=== PATIENT | male | born 1940 | race Caucasian/White ===

== ENCOUNTER 2021-11-01 18:38 | Emergency (ER) | payer OTHER ==
[~2021-11-01] VITALS: Ht 172 cm; Wt 82.0 kg
--- OUTSIDE RECORDS SUMMARY | 2021-11-01 18:43 | XMS REPORT | Clinical Summary ---
Author Author [facility] Organization [facility] Address Unknown Phone Unavailable Care Team Providers Care Molding Machine Tender Name Role Phone Aly Self DO PCP Source Comments Some departments are not documenting in the electronic medical record. If you d o not see the information that you expected, contact Release of Information in [facility] SwitchNote Information Management department at [phone] for further assistan ce in locating additional records.[facility] Allergies Comments Active Allergy Reactions Severity Noted Date Swelling of throat Iodine ANAPHYLAXIS High 10/01/2018 Morphine ITCHING Low 09/21/2018 Penicillins HIVES Medium 09/02/2018 arthralgias Gqbniqk-Cvq-Yzl Reductase SEE COMMENTS Low 08/23 Inhibitors Medications End Date Status Medication Sig Dispensed Refills Start Date Active levothyroxine (SYNTHROID) Take 1 tablet 0 07/25 112 mcg tablet by mouth 8 daily. Active lisinopril (PRINIVIL; Take 1 tablet 0 05/29/20 1 ZESTRIL) 20 mg tablet by mouth 8 daily. Active aspirin EC 81 mg tablet Take 81 mg by 0 mouth daily. Take with food. Active fexofenadine(+) (MEEK) Take 180 mg 0 180 mg tabletIndications: by mouth allergic rhinitis daily as needed. Active Magnesium 250 mg tab Take 250 mg 0 by mouth daily. Active gabapentin (NEURONTIN) Take 300 mg 0 01 300 mg capsule by mouth 8 three times daily. Active triamterene-hydrochloroth 0 iazide (DYAZIDE) 37.5-25 9 mg capsule Active simvastatin (ZOCOR) 40 mg Take 40 mg by 0 tablet mouth at bedtime daily. Active methylprednisolone Take with 4 tablet 0 02 (MEDROL) 32 mg tablet food. Take 1 1 Tablet 12 hours prior to scan and 1 tablet 2 hours prior to scan. Also take 50 mg benadryl 1 hours prior to scan. 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 Mr. Aleman is a 77 year old male wit h past medical history of HTN, hypothyroidism, HLD and tobacco with me lanoma left lateral eye lid. - Shave biopsy 09/09/18 with ulcerated melanoma with a Breslow thickness of at least 2.5 mm. The deep margin was po sitive for melanoma, there was no LVI or PNI identified. Provisional stag e T3b. - WLE and SLN biopsy 10/01/18 after binta lying CBD oil, no residual melanoma BRAF Status: Unknown CURRENT THERAPY: Observation L ast Assessment & Plan: Formatting of this note might be differ ent from the original. No evidence of recurrent disease. Resolved Problems Problem Noted Date Resolved Date Back pain 07/18/2020 Last Assessment & Plan: Formatting of this note might be differ ent from the original. Discussed L2 fracture on CT scan today. Patient reports injuring his back and having some back pain. He opted out of surgery for this. He re ports using CBD oil for this and that it has helped. Surgical History Surgery Date Site/Laterality Comments HX APPENDECTOMY 11/23/1982 - 11/22/1983 HX CHOLECYSTECTOMY 11/23/2013 - 11/22/2014 ABDOMINAL HERNIA REPAIR 11/23/2011 - 11/22/2012 WISDOM TEETH EXTRACTION 11/23/1958 - 11/22/1959 RETINAL DETACHMENT REPAIR 11/23/2004 - Left 11/22/2005 CATARACT REMOVAL 2004, 2006 Bilateral SKIN GRAFT 10/08/2018 Face/Left FULL THICKNESS SKIN GRAFT 20 SQ CM OR LESS - FACE/ NECK, LEFT LOWER LID & LEFT CHEEK perfo rmed by Xiang Pimentel MD at [facility] [address] OR/PERIOP MALIGNANT SKIN LESION 10/01/2018 Face/Left WIDE LOC AL EXCISION OF LEFT CHEEK performed by EXCISION Ranjeet Lr MD at [facility] OR/Periop LYMPH NODE BIOPSY 10/01/2018 Face/Left DEEP CERVICA L SENTINEL LYMPH NODE BIOPSY performed by Ranjeet Lr MD at [facility] OR/Pe riop Medical History Medical History Date Comments Back pain Hearing reduced Hypertension Acquired hypothyroidism Hyperlipidemia TIA (transient ischemic attack) 2000 no res idual effects Cancer (HCC) 08/2018 melanoma, left tanner k Family History Medical History Relation Name Comments Diabetes Father Cancer-Uterine Mother Relation Name Status Comments Father Mother Social History Date Tobacco Use Types Packs/Day Years Used Current Every Day Smoker Cigarettes, 2 40 Cigars Smokeless Tobacco: Never Used Tobacco Cessation: Ready to Quit: No Comments Alcohol Use Standard Drinks/Week Yes 6 (1 standard drink = 0.6 o z pure alcohol) Sex Assigned at Date Recorded Male 07/08/2021 11:42 AM CDT Last Filed Vital Signs Reading Time Taken Comments Vital Sign 131/57 07/15/2021 2:37 PM CDT Blood Pressure 76 07/15/2021 2:37 PM CDT Pulse 36.6 C (97.9 F) 07/15/2021 2:37 PM CDT Temperature 16 07/15/2021 2:37 PM CDT Respiratory Rate 100% 07/15/2021 2:37 PM CDT Oxygen Saturation - - Inhaled Oxygen Concentration 84 kg (185 lb 3.2 oz) 07/15/2021 2:37 PM CDT Weight 170.2 cm (5' 7") 07/15/2021 2:37 PM CDT Height 29.01 07/15/2021 2:37 PM CDT Body Mass Index Plan of Treatment Health Maintenance Due Date Last Done Comments MEDICARE ANNUAL WELLNESS 1942 VISIT PNEUMONIA (PPSV23) 1948 VACCINE (1 of 4 - PCV13) DTAP/TDAP VACCINES (1 - 1960 Tdap) HEPATITIS C SCREENING 1960 PHYSICAL (COMPREHENSIVE) 1960 EXAM SHINGLES RECOMBINANT 1992 VACCINE (1 of 2) INFLUENZA VACCINE 06/23/2021 Results Not on filefrom Last 3 Months Insurance Type Payer Benefit Subscriber ID Effective Phone Address Plan / Dates Group Medicare MEDICARE MEDICARE [id number] 2007-P [phone] [address] [place] [address] Medicare BCBS [place] BCBS [id number] 2020-P [phone] [address] [place] [address] Advance Directives Patient Coordinator Of Health Services Explanation Type Date Recorded Advance 09/02/2018 4:40 PM Directive/DPOA Care Teams Start Date End Date Molding Machine Tender Relationship Specialty 08/31/18 Aly Self DO PCP - General Family [address], [place] [id number]
--- OUTSIDE RECORDS SUMMARY | 2021-11-01 18:43 | XMS REPORT | Clinical Summary ---
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
--- NOTE | 2021-11-01 19:14 | ED GI ---
General Chief Complaint: Respiratory Problems Stated Complaint: FEVER/LOW OXYGEN LEVELS/DIZZINESS Source of Information: Patient Exam Limitations: No Limitations History of Present Illness Date Seen by Provider: Nov 01, 2021 Time Seen by Provider: 18:52 Initial Comments Patient to ER by private conveyance with his significant other and a report that he is been having chills, a week of shortness of air oxygen saturations 91% on room air today. He is a smoker however undiagnosed with COPD., Malaise, poor appetite for the past [address] CABALLERO's office 2 days ago and they thought maybe it was a dental abscess. He denies having any tooth pain or difficulty eating just poor appetite. They put him on ciprofloxacin and he has had 5 doses with no improvement. He also was given Magic mouthwash which did not improve his dentition as he is not having any dental symptoms prior to this. Patient not having any difficulty swallowing or nausea. No diarrhea or constipation. Had a normal bowel movement this morning. He denies fevers, worsening cough or shortness of air. He did not receive any testing at the time he was at his doctor's office. He denies having had Covid or influenza vaccination Allergies and Home Medications Allergies Coded Allergies: Penicillins (Verified Allergy, Unknown, 11/01/21) Patient Home Medication List Home Medication List Reviewed: Yes Review of Systems Review of Systems Constitutional: No chills, No diaphoresis EENTM: No Blurred Vision, No Double Vision Respiratory: Denies Cough, Denies Orthopnea Cardiovascular: Denies Chest Pain, Denies Edema Gastrointestinal: Denies Abdominal Pain, Denies Nausea Genitourinary: Denies Burning, Denies Discharge Musculoskeletal: No back pain, No joint pain Skin: No change in color, No lesions Psychiatric/Neurological: Denies Anxiety, Denies Depressed Endocrine: Denies Flushing, Denies Intolerance to Cold All Other Systems Reviewed Negative Unless Noted: Yes Past Gekbjfh-Xxktlz-Qulofe Hx Patient Social History Tobacco Use?: Yes Tobacco type used: Cigarettes Smoking Status: Current Everyday Smoker Substance use?: No Alcohol Use?: No Pt feels they are or have been: No Physical Exam Vital Signs Vital Signs - First Documented Capillary Refill : Less Than 3 Seconds Height/Weight/BMI Height: '" Weight: lbs. oz. kg; BMI Method: General Appearance: WD/WN, no apparent distress HEENT: PERRL/EOMI, normal ENT inspection, TMs normal; No pharynx normal (Significant dental caries without erythema swelling or tenderness over the indicated tooth in question.) Neck: non-tender, full range of motion, supple, normal inspection Respiratory: no respiratory distress (No increased work of breathing, 96% on room air, nonlabored breathing.), no accessory muscle use, wheezing (Faint, expiratory wheezing) Cardiovascular: normal peripheral pulses, regular rate, rhythm Peripheral Pulses: 2+ Radial Pulses (R), 2+ Radial Pulses (L) Gastrointestinal: normal bowel sounds, soft, tenderness (Mild tenderness right lower quadrant abdomen, without McBurney's point tenderness or rebound tenderness, negative for Rovsing sign. No mesenteric signs noted.) Neurologic/Psychiatric: alert; No normal mood/affect (Flat affect); oriented x 3 Skin: normal color, warm/dry Progress/Results/Core Measures Results/Orders Lab Results Laboratory Tests Test 11/01/21 19:06 Range/Units White Blood Count 5.0 4.3-11.0 10^3/uL Red Blood Count 5.26 4.30-5.52 10^6/uL Hemoglobin 16.1 13.3-17.7 g/dL Hematocrit 47 40-54 % Mean Corpuscular Volume 89 80-99 fL Mean Corpuscular Hemoglobin 31 25-34 pg Mean Corpuscular Hemoglobin Concent 34 32-36 g/dL Red Cell Distribution Width 13.0 10.0-14.5 % Platelet Count 130 130-400 10^3/uL Mean Platelet Volume 11.3 9.0-12.2 fL Immature Granulocyte % (Auto) 0 % Neutrophils (%) (Auto) 55 42-75 % Lymphocytes (%) (Auto) 30 12-44 % Monocytes (%) (Auto) 14 H 0-12 % Eosinophils (%) (Auto) 0 0-10 % Basophils (%) (Auto) 0 0-10 % Neutrophils # (Auto) 2.8 1.8-7.8 10^3/uL Lymphocytes # (Auto) 1.5 1.0-4.0 10^3/uL Monocytes # (Auto) 0.7 0.0-1.0 10^3/uL Eosinophils # (Auto) 0.0 0.0-0.3 10^3/uL Basophils # (Auto) 0.0 0.0-0.1 10^3/uL Immature Granulocyte # (Auto) 0.0 0.0-0.1 10^3/uL Percent Immature Platelet Fraction 6.5 0.0-7.6 % Sodium Level 132 L 135-145 MMOL/L Potassium Level 4.0 3.6-5.0 MMOL/L Chloride Level 102 98-107 MMOL/L Carbon Dioxide Level 16 L 21-32 MMOL/L Anion Gap 14 5-14 MMOL/L Blood Urea Nitrogen 29 H 7-18 MG/DL Creatinine 1.59 H 0.60-1.30 MG/DL Estimat Glomerular Filtration Rate 42 BUN/Creatinine Ratio 18 Glucose Level 87 70-105 MG/DL Calcium Level 8.6 8.5-10.1 MG/DL Corrected Calcium 8.8 8.5-10.1 MG/DL Total Bilirubin 0.7 0.1-1.0 MG/DL Aspartate Amino Transf (AST/SGOT) 30 5-34 U/L Alanine Aminotransferase (ALT/SGPT) 25 0-55 U/L Alkaline Phosphatase 66 40-136 U/L C-Reactive Protein High Sensitivity 4.05 H 0.00-0.50 MG/DL Total Protein 6.5 6.4-8.2 GM/DL Albumin 3.8 3.2-4.5 GM/DL Influenza Type A (RT-PCR) Not Detected Not Detecte Influenza Type B (RT-PCR) Not Detected Not Detecte SARS-CoV-2 RNA (RT-PCR) Detected H Not Detecte My Orders Orders - FRANCES CADE Covid 19 Inhouse Test (11/01/21 19:04) Influenza A And B By Pcr (11/01/21 19:04) Cbc With Automated Diff (11/01/21 19:04) Comprehensive Metabolic Panel (11/01/21 19:04) Hs C Reactive Protein (11/01/21 19:04) Chest 1 View, Ap/Pa Only (11/01/21 19:04) Ed Iv/Invasive Line Start (11/01/21 19:15) Lactated Ringers (Lr 1000 Ml Iv Solution (11/01/21 19:15) Pantoprazole Injection (Protonix Injecti (11/01/21 19:30) Ondansetron Injection (Zofran Injectio (11/01/21 19:30) Medications Given in ED Current Medications Medications Dose Ordered Sig/Shaun Route Start Time Stop Time Status Last Admin Dose Admin Lactated Ringer's 1,000 ml @ 0 mls/hr Q0M ONCE IV 11/01/21 19:15 11/01/21 19:16 DC 11/01/21 19:20 1,000 MLS/HR Ondansetron HCl 8 mg ONCE ONCE IVP 11/01/21 19:30 11/01/21 19:31 DC 11/01/21 19:24 8 MG Pantoprazole 40 mg ONCE ONCE IV 11/01/21 19:30 11/01/21 19:31 DC 11/01/21 19:25 40 MG Vital Signs/I&O 11/01/21 11/01/21 11/01/21 18:52 18:52 18:52 Temp 36.1 36.1 36.1 Pulse 54 54 54 Resp 24 24 24 B/P (MAP) 173/86 (115) 173/86 173/86 Pulse Ox 95 95 95 O2 Delivery Room Air Room Air Room Air Blood Pressure Mean: 115 Progress Progress Note : Time: 19:14 Progress Note Aseptic vital signs no evidence of hypoxemia or increased work of breathing. He does have some mild wheezing and we can provide an albuterol MDI. Plan to get a Covid and influenza swab as well check some basic labs. He does not give us much history however his symptoms seem most consistent with the general malaise of a viral syndrome. Chief complaint seems to be poor appetite. We will give him a liter of LR Diagnostic Imaging Diagonstic Imaging: Xray Plain Films/CT/US/NM/MRI: chest Reviewed: Reviewed by Me Departure Impression Primary Impression: COVID-19 Disposition: 01 HOME, SELF-CARE Condition: Stable Departure-Patient Inst. Decision time for Depature: 20:11 Referrals: UNKNOWN (PCP/Family) Primary Care Physician Patient Instructions: COVID-19 (DC) Add. Discharge Instructions: Drink plenty of fluids. Tylenol Motrin as necessary for body aches. Return to the ER promptly if you are having persistent oxygen saturations below 90% even while at rest. Zofran 1 tablet every 6 hours as necessary for nausea and/or vomiting. Albuterol inhaler through the spacer 2 puffs every 4 hours as necessary for coughing fits, wheezing or shortness of air. All discharge instructions reviewed with patient and/or family. Voiced understanding. Scripts Inhaler,Assist Device,Lg Mask (Procare Spacer with Adult Mask) 1 Each Spacer EACH MC Q4H PRN for WHEEZING, #1 0 Refills Prov: FRANCES CADE 11/01/21 Albuterol Sulfate (PROAIR HFA) 1 Puff Puff 2 PUFF IH Q4H PRN for WHEEZING, #1 EA 0 Refills 1 PUFF = 90 MCG Prov: FRANCES CADE 11/01/21 Ondansetron (Ondansetron Odt) 4 Mg Tab.rapdis 4 MG PO Q6H PRN for NAUSEA/VOMITING, #12 TAB 0 Refills Prov: FRANCES CADE 11/01/21 FRANCES CADE Nov 01, 2021 19:14
[2021-11-01] MEDS ORDERED: LACTATED RINGERS 1,000 ML IV ONE (19:15)
[2021-11-01 19:19] LABS: BASOPHILS % (AUTO) 0 % (0-10); EOSINOPHILS % (AUTO) 0 % (0-10); HEMATOCRIT 47 % (40-54); HEMOGLOBIN 16.1 g/dL (13.3-17.7); LYMPHOCYTES # (AUTO) 1.5 10^3/uL (1.0-4.0); LYMPHOCYTES % (AUTO) 30 % (12-44); MEAN CORPUSCULAR HEMOGLOBIN 31 pg (25-34); MEAN CORPUSCULAR HGB CONC 34 g/dL (32-36); MEAN CORPUSCULAR VOLUME 89 fL (80-99); MEAN PLATELET VOLUME 11.3 fL (9.0-12.2); MONOCYTES # (AUTO) 0.7 10^3/uL (0.0-1.0); MONOCYTES % (AUTO) 14 % (0-12); NEUTROPHILS # (AUTO) 2.8 10^3/uL (1.8-7.8); NEUTROPHILS % (AUTO) 55 % (42-75); PLATELET COUNT 130 10^3/uL (130-400)
--- NOTE | 2021-11-01 19:25 | Diagnostic Imaging Report ---
INDICATION: Shortness of breath. EXAMINATION: Frontal chest was obtained at 7:24 p.m. FINDINGS: Heart and mediastinal silhouette are normal in appearance. There is some minimal left perihilar infiltrate versus atelectasis. Lung jones are otherwise clear. There is no pneumothorax or pleural fluid. IMPRESSION: Minimal left perihilar infiltrate versus atelectasis; otherwise, negative chest. Dictated by: Dictated on workstation # [id number]
[2021-11-01 19:27] LABS: ALBUMIN 3.8 GM/DL (3.2-4.5)
[2021-11-01 19:28] LABS: CALCIUM 8.6 MG/DL (8.5-10.1)
[2021-11-01 19:30] LABS: TOTAL PROTEIN 6.5 GM/DL (6.4-8.2)
[2021-11-01] MEDS ORDERED: PANTOPRAZOLE 40 MG (PROTONIX) VIAL IV ONE (19:30)
[2021-11-01] MEDS ORDERED: ONDANSETRON 4 MG/2 ML (SDV) Z0FRAN IVP ONE (19:30)
[2021-11-01 19:31] LABS: BILIRUBIN,TOTAL 0.7 MG/DL (0.1-1.0)
[2021-11-01 19:33] LABS: CREATININE SERUM 1.59 MG/DL (0.60-1.30)
[2021-11-01] MEDS ORDERED: INHA1SPA49 MC (20:19)
[2021-11-01] MEDS ORDERED: RT-ALBUINH IH (20:19)
[2021-11-01] MEDS ORDERED: ONDA4TAB11 PO (20:19)
[2021-11-01 20:34] VITALS: BP 139/94
== END 2021-11-01 20:31 | disposition home or self-care (01) ==
LOC: ER 18:40
DX: U07.1 COVID-19 (principal); F17.210 Nicotine dependence, cigarettes, uncomplicated
CPT/HCPCS: 36415; 71045; 80053; 85025; 86141; 87636